=== PATIENT | male | born 1970 | race American Indian/Alaskan Native ===

== ENCOUNTER 2018-05-31 15:46 | Outpatient (CLI) | payer MEDICARE ==
[2018-05-31 16:20] LABS: Blood Urea Nitrogen 9 mg/dL (9-20)
--- NOTE | 2018-05-31 19:20 | Magnetic Resonance Report ---
FINAL REPORT EXAM: MR LUMBAR SPINE WO/W CON HISTORY: LUMBAR RADIOCULPATHY TECHNIQUE: MRI of the lumbar spine: Axial: T1, T2 Sagittal: T1, T2 and STIR 20 cc of MultiHance were given and T1 weighted fat-suppressed images were acquired in the axial, sagi ttal and coronal planes. PRIORS: None. FINDINGS: The lumbar vertebral bodies have normal height and alignment and lumbar lordosis is preserved. The pa raspinous soft tissues are unremarkable. The conus medullaris is in a normal location and has a reggie l signal intensity and appearance. The following levels were evaluated in the axial plane: T 12-L1 through L4-L5: No disc bulge or protrusion. The facet joints appear well preserved. No spinal or foraminal stenosis. L5-S1: Moderate loss of disc height and diffuse disc desiccation. Large broad-based posterior disc bu lge. The facet joints appear well preserved. Moderate right and mild left neural foraminal stenosis. IMPRESSION: Large broad-based posterior disc bulge at L5-S1 resulting in bilateral neural foraminal stenosis
== END 2018-05-31 15:47 | disposition home or self-care (01) ==
LOC: MRI 15:46
PROVIDERS: ATTEND Family Medicine
DX: M51.27 Other intervertebral disc displacement, lumbosacral region (principal); M48.07 Spinal stenosis, lumbosacral region; I10 Essential (primary) hypertension; J45.909 Unspecified asthma, uncomplicated
CPT/HCPCS: 36415; 72158; 82565; 84520; A9577

== ENCOUNTER 2018-08-25 07:14 | Day surgery (SDC) | payer MEDICARE ==
[~2018-08-25 07:14] MED LIST: NACL 0.9% 1000 ML 1,000 ML IV SCH
--- NOTE | 2018-08-25 08:13 | Anesthesia Consultation ---
Anesthesia Consult and Med Hx Date of service: 08/25/18 - Airway Anesthetic Teeth Evaluation: Caps ROM Head & Neck: Adequate Mental/Hyoid Distance: Adequate Mallampati Class: Class II Intubation Access Assessment: Good - Pulmonary Exam CTA: Yes - Cardiac Exam Cardiac Exam: RRR - Pre-Operative Health Status ASA Pre-Surgery Classification: ASA3 Proposed Anesthetic Plan: MAC - Pulmonary Hx Smoking: Yes Hx Asthma: Yes COPD: No Hx Pneumonia: No - Cardiovascular System Hx Hypertension: Yes Hx Coronary Artery Disease: Yes Hx Heart Attack/AMI: Yes Hx Percutaneous Transluminal Coronary Angioplasty (PTCA): Yes - Central Nervous System Hx Seizures: No CVA: No - Endocrine Hx End Stage Renal Disease: No
--- NOTE | 2018-08-25 08:14 | Anesthesia Day of Surgery ---
Anesthesia Day of Surgery - Day of Surgery Patient Examined: Yes Patient H&P Reviewed: Yes Patient is NPO: Yes
[2018-08-25] MEDS ORDERED: WATER FOR IRRIG STERILE IR ONE (08:42)
[2018-08-25] MEDS ORDERED: DIPRIVAN 10 MG/ML IV ONE (08:43)
--- NOTE | 2018-08-25 09:26 | Short Stay Summary ---
Short Stay Documentation - Allergies and Medications Current Medications: Allergies TAPE ADHESIVE Adverse Reaction (Uncoded 08/25/18 07:15) Rash Home Medications Medication Instructions Recorded Confirmed Last Taken Type Isosorbide Mononitrate [Isosorbide 30 mg PO DAILY #30 tab.er.24h 01/16/14 08/24/18 Unknown Rx Mononitrate ER] Prasugrel [Effient] 10 mg PO QDAY #30 tablet 01/16/14 08/24/18 Unknown Rx Simvastatin (Nf) [Zocor] 40 mg PO QHS #30 tablet 01/16/14 08/24/18 08/24/18 Rx Aspirin [Aspirin TAB] 81 mg PO QDAY 08/24/18 08/25/18 08/18/18 History Citalopram 40 mg PO DAILY 08/24/18 08/25/18 08/18/18 History Clonazepam 2 mg PO DAILY 08/24/18 08/25/18 08/22/18 History HYDROcodone/APAP 5-325 1 tab PO BID PRN 08/24/18 08/25/18 08/18/18 History Metoprolol 25 mg PO DAILY 08/24/18 08/25/18 08/18/18 History Naproxen 500 mg PO BID PRN 08/24/18 08/25/18 08/18/18 History Nitrostat 0.3 mg SUBLINGUAL Q5M PRN 08/24/18 08/24/18 Unknown History Plavix 75 mg PO DAILY 08/24/18 08/25/18 08/18/18 History tiZANidine 4 mg PO DAILY 08/24/18 08/25/18 08/18/18 History Active Medications Sodium Chloride (Nacl 0.9% 1000 Ml) 1,000 mls @ 50 mls/hr IV DIRECT ALANNA Last Admin: 08/25/18 08:28 Dose: 50 mls/hr Documented by: - Brief post op/procedure progress note Date of procedure: 08/25/18 Pre-op diagnosis: Colon cancer screening Post-op diagnosis: same (1. Colon polyp 2. Poor prep 3. Diverticulosis 4. Internal hemorrhoids) Procedure: Colonoscopy with cold biopsy polypectomy Anesthesia: MAC Findings: as above Surgeon: JUAN MANUEL CALLAWAY Estimated blood loss: none Pathology: list (1. Descending colon polyp) Specimen disposition: to lab Condition: stable - Disposition Condition at discharge: Stable Disposition: [id number] TO HOME OR SELFCARE Short Stay Discharge Plan Activity: no restrictions Weight Bearing Status: Full Weight Bearing Diet: regular, low salt Follow up with: JAH ENRIQUE MD [Primary Care Provider] - 7 Days
[2018-08-25 09:39] VITALS: BP 109/69
== END 2018-08-25 07:15 | disposition home or self-care (01) ==
LOC: GIO 07:14
PROVIDERS: ATTEND Internal Medicine Gastroenterology
DX: Z12.11 Encounter for screening for malignant neoplasm of colon (principal); D12.4 Benign neoplasm of descending colon; K57.30 Diverticulosis of large intestine without perforation or abscess without bleeding; K64.8 Other hemorrhoids; I25.2 Old myocardial infarction; F14.10 Cocaine abuse, uncomplicated; I25.119 Atherosclerotic heart disease of native coronary artery with unspecified angina pectoris; J45.909 Unspecified asthma, uncomplicated; I10 Essential (primary) hypertension; F17.210 Nicotine dependence, cigarettes, uncomplicated; E78.00 Pure hypercholesterolemia, unspecified; Z79.82 Long term (current) use of aspirin; Z79.899 Other long term (current) drug therapy; Z95.1 Presence of aortocoronary bypass graft; Z98.61 Coronary angioplasty status; Z98.890 Other specified postprocedural states; Z88.8 Allergy status to other drugs, medicaments and biological substances
CPT/HCPCS: 45380; 88305; J2704; J7030